=== PATIENT | male | born 1985 | race Caucasian/White ===

== ENCOUNTER 2019-01-18 14:36 | Emergency (ER) | payer OTHER ==
--- NOTE | 2019-01-18 15:59 | EDPHY ---
H & P Time Seen by Provider: 01/18/19 15:18 HPI/ROS: CHIEF COMPLAINT: Facial pain HISTORY OF PRESENT ILLNESS: 33-year-old male presents with left-sided facial pain. Onset of pain 3 days ago, gradually increasing since then and associated with left facial swelling. Pain is moderate and persistent. Ibuprofen with some relief. He fractured the left upper front tooth a couple weeks ago. ROS: No fever, drainage, SOB, neck pain/swelling Past Medical/Surgical History: Dental issues Social History: Lives in [place], here on business Smoking Status: Never smoked Physical Exam: General Appearance: Alert, pleasant Eyes: Pupils equal and round, no conjunctival injection ENT, Mouth: left upper central incisor severe decay, only base of tooth present , mucosal tenderness above the tooth, no swelling of face or intraorally Neck: Normal inspection, no swelling or tenderness Respiratory: Lungs are clear to auscultation Cardiovascular: Regular rate and rhythm Neurological: Nonfocal exam Skin: Warm and dry Psychiatric: Mood and affect normal Constitutional: Initial Vital Signs Temperature (C) 36.8 C 01/18/19 14:43 Heart Rate 69 01/18/19 14:43 Respiratory Rate 18 01/18/19 14:43 Blood Pressure 150/98 H 01/18/19 14:43 O2 Sat (%) 97 01/18/19 14:43 O2 Delivery Mode Room Air Allergies/Adverse Reactions: Penicillins Allergy (Verified 01/18/19 14:41) Home Medications: Medication Instructions Recorded Clindamycin HCl [Clindamycin] 300 mg PO TID #30 cap 01/18/19 Hydrocodone/APAP 5/325 [Ewen 1 - 2 tab PO Q4H PRN #6 tab 01/18/19 5/325] Ibuprofen 01/18/19 Departure - Departure Disposition: Home, Routine, Self-Care Clinical Impression: Pain, dental Condition: Good Instructions: Toothache (ED) Additional Instructions: Ibuprofen 600 mg 3 times daily while the pain persists. [facility]. [facility]errals: [facility] [Outside] - As per Instructions Prescriptions: Clindamycin HCl [Clindamycin] 300 mg PO TID #30 cap Hydrocodone/APAP 5/325 [Ewen 5/325] 1 - 2 tab PO Q4H PRN #6 tab PRN Reason: Pain, Moderate
[2019-01-18 16:06] VITALS: BP 117/65
== END 2019-01-18 16:06 | disposition home or self-care (01) ==
DX: K08.89 Other specified disorders of teeth and supporting structures (principal)